=== PATIENT | male | born 2000 | race Caucasian/White ===

== ENCOUNTER 2022-06-27 06:42 | Emergency (ER) | payer OTHER ==
[~2022-06-27] VITALS: Ht 170.2 cm; Wt 77.1 kg
[2022-06-27 06:50] VITALS: BP_SYST 146
--- NOTE | 2022-06-27 06:50 | NUR ---
Patient to ER bed 5 to gown for evaluation. Side rails up. Report given to IZZY DE LEON(REG).
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
[2022-06-27] MEDS ORDERED: IBUPROFEN 600 MG TABLET PO ONE (07:15)
[2022-06-27] MEDS ORDERED: TRAM50TA PO (07:28)
[2022-06-27] MEDS ORDERED: NAPR-688 PO (07:28)
--- NOTE | 2022-06-27 07:47 | NUR ---
Patient given written and verbal discharge instructions and verbalizes understanding. ER MD discussed with patient the results and treatment provided. Patient in stable condition. ID arm band removed. Rx of NAPROXEN AND TRAMADOL given. Patient educated on pain management and to follow up with PMD. Opportunity for questions provided and answered. Medication side effect fact sheet provided.
[2022-06-27 07:48] VITALS: BP_SYST 146
== END 2022-06-27 07:48 | disposition home or self-care (01) ==
LOC: SED 06:42
DX: M54.50 Low back pain, unspecified (principal); Z88.0 Allergy status to penicillin; Z79.899 Other long term (current) drug therapy; V47.5XXA Car driver injured in collision with fixed or stationary object in traffic accident, initial encounter; Y93.89 Activity, other specified; Y92.89 Other specified places as the place of occurrence of the external cause; Y99.8 Other external cause status
CPT/HCPCS: 72100-TC; 99283